=== PATIENT | female | born 1995 | race Caucasian/White ===

== ENCOUNTER 2017-01-18 08:56 | Emergency (ER) | payer OTHER ==
[~2017-01-18] VITALS: Ht 162.6 cm; Wt 86.7 kg
[2017-01-18 09:00] VITALS: Ht 162.6 cm; Wt 86.7 kg
[2017-01-18] MEDS ORDERED: KETOROLAC 60 MG INJ IM STA (09:49)
--- NOTE | 2017-01-18 09:49 | ERD ---
ER Documentation Chief Complaint Chief Complaint LT UPPER ABD PAIN WITH NAUSEA/VOMITING X 2 DAYS HPI 21y/o female patient with history of cholelithiasis, presents to the emergency department with mother c/o epigastric pain pain located on the right side, that started 2 days ago. pain is sharp and colicky, constant, rated 6/10, without radiation. The symptoms are associated with mild nausea and decreased appetite. Denies fever, chills, V/D, constipation or urinary symptoms. Positive history of previous episodes my last episode in 2015. Treatment attempted: None at this time. ROS SYSTEMIC symptoms: no fever, chills, no night sweats, no weight loss EYE symptoms: No blurred vision, no eye discharge OTOLARYNGEAL symptoms: No hearing loss. No ear pain, no sore throat CARDIOVASCULAR symptoms: No chest pain or discomfort, no palpitations. PULMONARY symptoms: No dyspnea, no cough, no wheezing. GASTROINTESTINAL symptoms: Burning abdominal pain, mild nausea, no vomiting, no diarrhea MUSCULOSKELETAL symptoms: No arthralgias, no muscle aches. NEUROLOGY symptoms: No confusion, no syncope, no numbness or tingling. SKIN no rashes All systems reviewed and are negative except as per history of present illness. Medications Home Meds Active Scripts Ibuprofen* (Ibuprofen*) 600 Mg Tablet, 600 MG PO Q6, #20 TAB Prov:LINO ROBLES MD 01/18/17 Ciprofloxacin Hcl* (Ciprofloxacin Hcl*) 250 Mg Tablet, 250 MG PO BID for 5 Days , #10 TAB Prov:LINO ROBLES MD 01/18/17 Allergies Allergies: Coded Allergies: No Known Allergy (Unverified , 01/18/17) Physical Exam Vitals Vital Signs Date Time Temp Pulse Resp B/P Pulse Ox O2 Delivery O2 Flow Rate FiO2 01/18/17 09:00 98.3 78 18 121/67 98 Physical Exam Patient is in mild distress due to pain, vital signs stable. Alert and fully oriented. EYES: PERRLA, EOMI, Sclera and conjunctiva appear normal. EARS: Canals clear, tympanic membranes WNL THROAT: Normal oropharynx. NECK: Supple, No lymphadenopathy. Full ROM without pain or tenderness. HEART: RRR, no rubs, murmurs, clicks or gallops. LUNGS: Clear to auscultation. ABDOMEN: Soft, non-tender without masses or hepatosplenomegaly. EXTREMITIES: No edema bilaterally. Back: Full ROM, no deformity, normal back exam Result Diagram: 01/18/17 1005 01/18/17 1005 Results 24 hrs Laboratory Tests Test 01/18/17 10:05 White Blood Count 8.110^3/ul Red Blood Count 4.4910^6/ul Hemoglobin 11.8g/dl Hematocrit 39.0% Mean Corpuscular Volume 86.9fl Mean Corpuscular Hemoglobin 26.3pg Mean Corpuscular Hemoglobin Concent 30.3g/dl Red Cell Distribution Width 14.7% Platelet Count 10637^3/UL Mean Platelet Volume 11.7fl Neutrophils % 59.0% Lymphocytes % 29.4% Monocytes % 9.0% Eosinophils % 1.9% Basophils % 0.2% Nucleated Red Blood Cells % 0.0/100WBC Neutrophils # 4.810^3/ul Lymphocytes # 2.410^3/ul Monocytes # 0.710^3/ul Eosinophils # 0.210^3/ul Basophils # 0.010^3/ul Nucleated Red Blood Cells # 0.010^3/ul Urine Color YELLOW Urine Clarity CLOUDY Urine pH 6.0 Urine Specific Roxana 1.020 Urine Ketones NEGATIVEmg/dL Urine Nitrite NEGATIVEmg/dL Urine Bilirubin NEGATIVEmg/dL Urine Urobilinogen NEGATIVEmg/dL Urine Leukocyte Esterase 2+Nell/ul Urine Microscopic RBC 4/HPF Urine Microscopic WBC 21/HPF Urine Squamous Epithelial Cells FEW/HPF Urine Amorphous Crystals FEW/HPF Urine Bacteria FEW/HPF Urine Mucus FEW/HPF Urine Hemoglobin 1+mg/dL Urine Glucose NEGATIVEmg/dL Urine Total Protein NEGATIVEmg/dl Urine Test NEGATIVE Sodium Level 144mmol/L Potassium Level 3.7mmol/L Chloride Level 105mmol/L Carbon Dioxide Level 27mmol/L Anion Gap 16 Blood Urea Nitrogen 12mg/dl Creatinine 0.71mg/dl Glucose Level 90mg/dl Calcium Level 8.7mg/dl Total Bilirubin 0.2mg/dl Direct Bilirubin 0.00mg/dl Indirect Bilirubin 0.2mg/dl Aspartate Amino Transf (AST/SGOT) 39IU/L Alanine Aminotransferase (ALT/SGPT) 76IU/L Alkaline Phosphatase 124IU/L Total Protein 6.3g/dl Albumin 3.8g/dl Globulin 2.50g/dl Albumin/Globulin Ratio 1.52 Lipase 116U/L Current Medications Medications (Trade) Dose Ordered Sig/Sahil Route PRN Reason Start Time Stop Time Status Last Admin Dose Admin Ketorolac Tromethamine (Toradol) 60 mg ONCE STAT IM 01/18/17 09:49 01/18/17 09:53 DC 01/18/17 11:02 DIAGNOSTIC IMAGING REPORT Patient: MACK INTERIANO : 1995 Age: 21 Sex: F MR #: [id number] DOS: 01/18/17 0949 Ordering MD: LINO ROBLES MD Location: [facility] Room/Bed: PROCEDURE: US Abdomen. CLINICAL INDICATION: abdominal pain TECHNIQUE: Multiple real-time images were acquired of the patient's right upper quadrant abdomen and retroperitoneum utilizing a high resolution transducer. COMPARISON: None FINDINGS: The study is limited due to the patient's body habitus and overlying bowel gas. The liver demonstrates slightly increased echogenicity. The liver is normal in size and no focal solid lesions are seen. The liver measures 15.5 cm in length. The portal vein is patent with normal direction of flow. No intrahepatic biliary dilatation is seen. Multiple calcified gallstones are identified within the gallbladder. There is no pericholecystic fluid. The gallbladder wall cannot be well seen. The common bile duct measures 4 mm in maximal dimension. The visualized portions of the pancreas are unremarkable. The tail of the pancreas is not seen. No free fluid is identified. The right kidney is normal in size, and demonstrate normal echogenicity and cortical thickness. The right kidney measures 9.3 cm in long dimension. There is no evidence of hydronephrosis. There are no kidney stones. RPTAT: AA IMPRESSION: Limited study due to the patient's body habitus and overlying bowel gas. Multiple calcified stones within the gallbladder. Gallbladder wall cannot be well seen but does not appear to be thickened. There is no pericholecystic fluid. Mild fatty infiltration of the liver. .Armando Torres MD, Date Time Electronically viewed and signed by .Armando Torres MD, on 01/18/2017 10: 39 Procedures/MDM 21y/o female patient history of cholelithiasis, presents to the ED c/o right upper quadrant pain for 2 days. Vital signs stable, Physical exam mild tenderness to deep palpation in epigastric area. Differential diagnosis include but not limited to: Gastritis, GERD, cholelithiasis, cholecystitis, less likely cholangitis, pancreatitis. Pertinent Data: Labs: CBC: normal, CMP: normal kidney and liver function with mildly elevated alkaline phosphatase and AST, normal electrolytes. Lipase: normal Upper quadrant ultrasound: Multiple calcified stones within the gallbladder. Gallbladder wall cannot be well seen but does not appear to be thickened. There is no pericholecystic fluid. UA: Consistent with urinary tract infection. test negative Physical examination and clinical presentation consistent most likely with UTI and biliary colic. During the ED course the patient received treatment with Toradol IM presenting overall improvement of the symptoms. Results and medical impression discussed with patient who agrees with management. The patient will be discharged home with a Rx for ciprofloxacin for UTI and ibuprofen for biliary colic Side effects of prescribed NSAID medication (GI distress, edema, bleeding, HTN) were reviewed. If symptoms persist, worsen or new symptoms develop, then patient is instructed to follow-up with the primary care provider. If the patient is unable to see the primary care provider, then return to the ED immediately. Departure Diagnosis: Primary Impression: Cholelithiases Additional Impression: Biliary colic Condition: Stable Additional Instructions: Muchas lashonda por [facility] para enriquez servicio. Esperamos que en enriquez visita a la gene de emergencia enriquez problema medico haya sido solucionado y que se sienta mucho mejor. Para estar seguros que enriquez mejoria sigue en proceso, le pedimos el favor de hacer nathen stephanie de seguimiento medico con enriquez doctor primario en los proximos 2-4 gauthier. Lleve con usted estos documentos y las medicinas recetadas. Si kristy sintomas empeoran y no puede charmaine a enriquez doctor, por favor regrese a gene de emergencia. En melissa que usted no tenga un mdico de atencin primaria: Llame al mdico o clnica comunitaria de referencia que aparece abajo sherry las horas de consultorio para hacer nathen stephanie para que le vean. CLINICAS: [facility] [phone] [facility] [phone] [facility] [phone] [place] [address] [phone] [place] [address] [phone] [facility] [phone] LINO HOLGUIN MD Jan 18, 2017 09:49
--- NOTE | 2017-01-18 09:49 | ERD ---
ER Documentation Chief Complaint Chief Complaint LT UPPER ABD PAIN WITH NAUSEA/VOMITING X 2 DAYS HPI 21y/o female patient with history of cholelithiasis, presents to the emergency department with mother c/o epigastric pain pain located on the right side, that started 2 days ago. pain is sharp and colicky, constant, rated 6/10, without radiation. The symptoms are associated with mild nausea and decreased appetite. Denies fever, chills, V/D, constipation or urinary symptoms. Positive history of previous episodes my last episode in 2015. Treatment attempted: None at this time. ROS SYSTEMIC symptoms: no fever, chills, no night sweats, no weight loss EYE symptoms: No blurred vision, no eye discharge OTOLARYNGEAL symptoms: No hearing loss. No ear pain, no sore throat CARDIOVASCULAR symptoms: No chest pain or discomfort, no palpitations. PULMONARY symptoms: No dyspnea, no cough, no wheezing. GASTROINTESTINAL symptoms: Burning abdominal pain, mild nausea, no vomiting, no diarrhea MUSCULOSKELETAL symptoms: No arthralgias, no muscle aches. NEUROLOGY symptoms: No confusion, no syncope, no numbness or tingling. SKIN no rashes All systems reviewed and are negative except as per history of present illness. Medications Home Meds Active Scripts Ibuprofen* (Ibuprofen*) 600 Mg Tablet, 600 MG PO Q6, #20 TAB Prov:LINO ROBLES MD 01/18/17 Ciprofloxacin Hcl* (Ciprofloxacin Hcl*) 250 Mg Tablet, 250 MG PO BID for 5 Days , #10 TAB Prov:LINO ROBLES MD 01/18/17 Allergies Allergies: Coded Allergies: No Known Allergy (Unverified , 01/18/17) Physical Exam Vitals Vital Signs Date Time Temp Pulse Resp B/P Pulse Ox O2 Delivery O2 Flow Rate FiO2 01/18/17 09:00 98.3 78 18 121/67 98 Physical Exam Patient is in mild distress due to pain, vital signs stable. Alert and fully oriented. EYES: PERRLA, EOMI, Sclera and conjunctiva appear normal. EARS: Canals clear, tympanic membranes WNL THROAT: Normal oropharynx. NECK: Supple, No lymphadenopathy. Full ROM without pain or tenderness. HEART: RRR, no rubs, murmurs, clicks or gallops. LUNGS: Clear to auscultation. ABDOMEN: Soft, non-tender without masses or hepatosplenomegaly. EXTREMITIES: No edema bilaterally. Back: Full ROM, no deformity, normal back exam Result Diagram: 01/18/17 1005 01/18/17 1005 Results 24 hrs Laboratory Tests Test 01/18/17 10:05 White Blood Count 8.110^3/ul Red Blood Count 4.4910^6/ul Hemoglobin 11.8g/dl Hematocrit 39.0% Mean Corpuscular Volume 86.9fl Mean Corpuscular Hemoglobin 26.3pg Mean Corpuscular Hemoglobin Concent 30.3g/dl Red Cell Distribution Width 14.7% Platelet Count 73491^3/UL Mean Platelet Volume 11.7fl Neutrophils % 59.0% Lymphocytes % 29.4% Monocytes % 9.0% Eosinophils % 1.9% Basophils % 0.2% Nucleated Red Blood Cells % 0.0/100WBC Neutrophils # 4.810^3/ul Lymphocytes # 2.410^3/ul Monocytes # 0.710^3/ul Eosinophils # 0.210^3/ul Basophils # 0.010^3/ul Nucleated Red Blood Cells # 0.010^3/ul Urine Color YELLOW Urine Clarity CLOUDY Urine pH 6.0 Urine Specific Vance 1.020 Urine Ketones NEGATIVEmg/dL Urine Nitrite NEGATIVEmg/dL Urine Bilirubin NEGATIVEmg/dL Urine Urobilinogen NEGATIVEmg/dL Urine Leukocyte Esterase 2+Nell/ul Urine Microscopic RBC 4/HPF Urine Microscopic WBC 21/HPF Urine Squamous Epithelial Cells FEW/HPF Urine Amorphous Crystals FEW/HPF Urine Bacteria FEW/HPF Urine Mucus FEW/HPF Urine Hemoglobin 1+mg/dL Urine Glucose NEGATIVEmg/dL Urine Total Protein NEGATIVEmg/dl Urine Test NEGATIVE Sodium Level 144mmol/L Potassium Level 3.7mmol/L Chloride Level 105mmol/L Carbon Dioxide Level 27mmol/L Anion Gap 16 Blood Urea Nitrogen 12mg/dl Creatinine 0.71mg/dl Glucose Level 90mg/dl Calcium Level 8.7mg/dl Total Bilirubin 0.2mg/dl Direct Bilirubin 0.00mg/dl Indirect Bilirubin 0.2mg/dl Aspartate Amino Transf (AST/SGOT) 39IU/L Alanine Aminotransferase (ALT/SGPT) 76IU/L Alkaline Phosphatase 124IU/L Total Protein 6.3g/dl Albumin 3.8g/dl Globulin 2.50g/dl Albumin/Globulin Ratio 1.52 Lipase 116U/L Current Medications Medications (Trade) Dose Ordered Sig/Sahil Route PRN Reason Start Time Stop Time Status Last Admin Dose Admin Ketorolac Tromethamine (Toradol) 60 mg ONCE STAT IM 01/18/17 09:49 01/18/17 09:53 DC 01/18/17 11:02 DIAGNOSTIC IMAGING REPORT Patient: MACK INTERIANO : 1995 Age: 21 Sex: F MR #: [id number] DOS: 01/18/17 0949 Ordering MD: LINO ROBLES MD Location: [facility]TE Room/Bed: PROCEDURE: US Abdomen. CLINICAL INDICATION: abdominal pain TECHNIQUE: Multiple real-time images were acquired of the patient's right upper quadrant abdomen and retroperitoneum utilizing a high resolution transducer. COMPARISON: None FINDINGS: The study is limited due to the patient's body habitus and overlying bowel gas. The liver demonstrates slightly increased echogenicity. The liver is normal in size and no focal solid lesions are seen. The liver measures 15.5 cm in length. The portal vein is patent with normal direction of flow. No intrahepatic biliary dilatation is seen. Multiple calcified gallstones are identified within the gallbladder. There is no pericholecystic fluid. The gallbladder wall cannot be well seen. The common bile duct measures 4 mm in maximal dimension. The visualized portions of the pancreas are unremarkable. The tail of the pancreas is not seen. No free fluid is identified. The right kidney is normal in size, and demonstrate normal echogenicity and cortical thickness. The right kidney measures 9.3 cm in long dimension. There is no evidence of hydronephrosis. There are no kidney stones. RPTAT: AA IMPRESSION: Limited study due to the patient's body habitus and overlying bowel gas. Multiple calcified stones within the gallbladder. Gallbladder wall cannot be well seen but does not appear to be thickened. There is no pericholecystic fluid. Mild fatty infiltration of the liver. .Armando Torres MD, Date Time Electronically viewed and signed by .Armando Torres MD, on 01/18/2017 10: 39 Procedures/MDM 21y/o female patient history of cholelithiasis, presents to the ED c/o right upper quadrant pain for 2 days. Vital signs stable, Physical exam mild tenderness to deep palpation in epigastric area. Differential diagnosis include but not limited to: Gastritis, GERD, cholelithiasis, cholecystitis, less likely cholangitis, pancreatitis. Pertinent Data: Labs: CBC: normal, CMP: normal kidney and liver function with mildly elevated alkaline phosphatase and AST, normal electrolytes. Lipase: normal Upper quadrant ultrasound: Multiple calcified stones within the gallbladder. Gallbladder wall cannot be well seen but does not appear to be thickened. There is no pericholecystic fluid. UA: Consistent with urinary tract infection. test negative Physical examination and clinical presentation consistent most likely with UTI and biliary colic. During the ED course the patient received treatment with Toradol IM presenting overall improvement of the symptoms. Results and medical impression discussed with patient who agrees with management. The patient will be discharged home with a Rx for ciprofloxacin for UTI and ibuprofen for biliary colic Side effects of prescribed NSAID medication (GI distress, edema, bleeding, HTN) were reviewed. If symptoms persist, worsen or new symptoms develop, then patient is instructed to follow-up with the primary care provider. If the patient is unable to see the primary care provider, then return to the ED immediately. Departure Diagnosis: Primary Impression: Cholelithiases Additional Impression: Biliary colic Condition: Stable Additional Instructions: Muchas lashonda por [facility] para enriquez servicio. Esperamos que en enriquez visita a la gene de emergencia enriquez problema medico haya sido solucionado y que se sienta mucho mejor. Para estar seguros que enriquez mejoria sigue en proceso, le pedimos el favor de hacer nathen stephanie de seguimiento medico con enriquez doctor primario en los proximos 2-4 gauthier. Lleve con usted estos documentos y las medicinas recetadas. Si kristy sintomas empeoran y no puede charmaine a enriquez doctor, por favor regrese a gene de emergencia. En melissa que usted no tenga un mdico de atencin primaria: Llame al mdico o clnica comunitaria de referencia que aparece abajo sherry las horas de consultorio para hacer nathen stephanie para que le vean. CLINICAS: [facility] [phone] [facility] [phone] [facility] [phone] [address] [place] [address] [phone] [place] [address] [phone] [facility] [phone] LINO HOLGUIN MD Jan 18, 2017 09:49
--- NOTE | 2017-01-18 09:49 | ERD ---
ER Documentation Chief Complaint Chief Complaint LT UPPER ABD PAIN WITH NAUSEA/VOMITING X 2 DAYS HPI 21y/o female patient with history of cholelithiasis, presents to the emergency department with mother c/o epigastric pain pain located on the right side, that started 2 days ago. pain is sharp and colicky, constant, rated 6/10, without radiation. The symptoms are associated with mild nausea and decreased appetite. Denies fever, chills, V/D, constipation or urinary symptoms. Positive history of previous episodes my last episode in 2015. Treatment attempted: None at this time. ROS SYSTEMIC symptoms: no fever, chills, no night sweats, no weight loss EYE symptoms: No blurred vision, no eye discharge OTOLARYNGEAL symptoms: No hearing loss. No ear pain, no sore throat CARDIOVASCULAR symptoms: No chest pain or discomfort, no palpitations. PULMONARY symptoms: No dyspnea, no cough, no wheezing. GASTROINTESTINAL symptoms: Burning abdominal pain, mild nausea, no vomiting, no diarrhea MUSCULOSKELETAL symptoms: No arthralgias, no muscle aches. NEUROLOGY symptoms: No confusion, no syncope, no numbness or tingling. SKIN no rashes All systems reviewed and are negative except as per history of present illness. Medications Home Meds Active Scripts Ibuprofen* (Ibuprofen*) 600 Mg Tablet, 600 MG PO Q6, #20 TAB Prov:LINO ROBLES MD 01/18/17 Ciprofloxacin Hcl* (Ciprofloxacin Hcl*) 250 Mg Tablet, 250 MG PO BID for 5 Days , #10 TAB Prov:LINO ROBLES MD 01/18/17 Allergies Allergies: Coded Allergies: No Known Allergy (Unverified , 01/18/17) Physical Exam Vitals Vital Signs Date Time Temp Pulse Resp B/P Pulse Ox O2 Delivery O2 Flow Rate FiO2 01/18/17 09:00 98.3 78 18 121/67 98 Physical Exam Patient is in mild distress due to pain, vital signs stable. Alert and fully oriented. EYES: PERRLA, EOMI, Sclera and conjunctiva appear normal. EARS: Canals clear, tympanic membranes WNL THROAT: Normal oropharynx. NECK: Supple, No lymphadenopathy. Full ROM without pain or tenderness. HEART: RRR, no rubs, murmurs, clicks or gallops. LUNGS: Clear to auscultation. ABDOMEN: Soft, non-tender without masses or hepatosplenomegaly. EXTREMITIES: No edema bilaterally. Back: Full ROM, no deformity, normal back exam Result Diagram: 01/18/17 1005 01/18/17 1005 Results 24 hrs Laboratory Tests Test 01/18/17 10:05 White Blood Count 8.110^3/ul Red Blood Count 4.4910^6/ul Hemoglobin 11.8g/dl Hematocrit 39.0% Mean Corpuscular Volume 86.9fl Mean Corpuscular Hemoglobin 26.3pg Mean Corpuscular Hemoglobin Concent 30.3g/dl Red Cell Distribution Width 14.7% Platelet Count 03273^3/UL Mean Platelet Volume 11.7fl Neutrophils % 59.0% Lymphocytes % 29.4% Monocytes % 9.0% Eosinophils % 1.9% Basophils % 0.2% Nucleated Red Blood Cells % 0.0/100WBC Neutrophils # 4.810^3/ul Lymphocytes # 2.410^3/ul Monocytes # 0.710^3/ul Eosinophils # 0.210^3/ul Basophils # 0.010^3/ul Nucleated Red Blood Cells # 0.010^3/ul Urine Color YELLOW Urine Clarity CLOUDY Urine pH 6.0 Urine Specific [place] 1.020 Urine Ketones NEGATIVEmg/dL Urine Nitrite NEGATIVEmg/dL Urine Bilirubin NEGATIVEmg/dL Urine Urobilinogen NEGATIVEmg/dL Urine Leukocyte Esterase 2+Nell/ul Urine Microscopic RBC 4/HPF Urine Microscopic WBC 21/HPF Urine Squamous Epithelial Cells FEW/HPF Urine Amorphous Crystals FEW/HPF Urine Bacteria FEW/HPF Urine Mucus FEW/HPF Urine Hemoglobin 1+mg/dL Urine Glucose NEGATIVEmg/dL Urine Total Protein NEGATIVEmg/dl Urine Test NEGATIVE Sodium Level 144mmol/L Potassium Level 3.7mmol/L Chloride Level 105mmol/L Carbon Dioxide Level 27mmol/L Anion Gap 16 Blood Urea Nitrogen 12mg/dl Creatinine 0.71mg/dl Glucose Level 90mg/dl Calcium Level 8.7mg/dl Total Bilirubin 0.2mg/dl Direct Bilirubin 0.00mg/dl Indirect Bilirubin 0.2mg/dl Aspartate Amino Transf (AST/SGOT) 39IU/L Alanine Aminotransferase (ALT/SGPT) 76IU/L Alkaline Phosphatase 124IU/L Total Protein 6.3g/dl Albumin 3.8g/dl Globulin 2.50g/dl Albumin/Globulin Ratio 1.52 Lipase 116U/L Current Medications Medications (Trade) Dose Ordered Sig/Sahil Route PRN Reason Start Time Stop Time Status Last Admin Dose Admin Ketorolac Tromethamine (Toradol) 60 mg ONCE STAT IM 01/18/17 09:49 01/18/17 09:53 DC 01/18/17 11:02 DIAGNOSTIC IMAGING REPORT Patient: MACK INTERIANO : 1995 Age: 21 Sex: F MR #: [id number] DOS: 01/18/17 0949 Ordering MD: LINO ROBLES MD Location: [facility] Room/Bed: PROCEDURE: US Abdomen. CLINICAL INDICATION: abdominal pain TECHNIQUE: Multiple real-time images were acquired of the patient's right upper quadrant abdomen and retroperitoneum utilizing a high resolution transducer. COMPARISON: None FINDINGS: The study is limited due to the patient's body habitus and overlying bowel gas. The liver demonstrates slightly increased echogenicity. The liver is normal in size and no focal solid lesions are seen. The liver measures 15.5 cm in length. The portal vein is patent with normal direction of flow. No intrahepatic biliary dilatation is seen. Multiple calcified gallstones are identified within the gallbladder. There is no pericholecystic fluid. The gallbladder wall cannot be well seen. The common bile duct measures 4 mm in maximal dimension. The visualized portions of the pancreas are unremarkable. The tail of the pancreas is not seen. No free fluid is identified. The right kidney is normal in size, and demonstrate normal echogenicity and cortical thickness. The right kidney measures 9.3 cm in long dimension. There is no evidence of hydronephrosis. There are no kidney stones. RPTAT: AA IMPRESSION: Limited study due to the patient's body habitus and overlying bowel gas. Multiple calcified stones within the gallbladder. Gallbladder wall cannot be well seen but does not appear to be thickened. There is no pericholecystic fluid. Mild fatty infiltration of the liver. .Armando Torres MD, Date Time Electronically viewed and signed by .Armando Torres MD, on 01/18/2017 10: 39 Procedures/MDM 21y/o female patient history of cholelithiasis, presents to the ED c/o right upper quadrant pain for 2 days. Vital signs stable, Physical exam mild tenderness to deep palpation in epigastric area. Differential diagnosis include but not limited to: Gastritis, GERD, cholelithiasis, cholecystitis, less likely cholangitis, pancreatitis. Pertinent Data: Labs: CBC: normal, CMP: normal kidney and liver function with mildly elevated alkaline phosphatase and AST, normal electrolytes. Lipase: normal Upper quadrant ultrasound: Multiple calcified stones within the gallbladder. Gallbladder wall cannot be well seen but does not appear to be thickened. There is no pericholecystic fluid. UA: Consistent with urinary tract infection. test negative Physical examination and clinical presentation consistent most likely with UTI and biliary colic. During the ED course the patient received treatment with Toradol IM presenting overall improvement of the symptoms. Results and medical impression discussed with patient who agrees with management. The patient will be discharged home with a Rx for ciprofloxacin for UTI and ibuprofen for biliary colic Side effects of prescribed NSAID medication (GI distress, edema, bleeding, HTN) were reviewed. If symptoms persist, worsen or new symptoms develop, then patient is instructed to follow-up with the primary care provider. If the patient is unable to see the primary care provider, then return to the ED immediately. Departure Diagnosis: Primary Impression: Cholelithiases Additional Impression: Biliary colic Condition: Stable Additional Instructions: Muchas lashonda por [facility] para enriquez servicio. Esperamos que en enriquez visita a la gene de emergencia enriquez problema medico haya sido solucionado y que se sienta mucho mejor. Para estar seguros que enriquez mejoria sigue en proceso, le pedimos el favor de hacer nathen stephanie de seguimiento medico con enriquez doctor primario en los proximos 2-4 gauthier. Lleve con usted estos documentos y las medicinas recetadas. Si kristy sintomas empeoran y no puede charmaine a enriquez doctor, por favor regrese a gene de emergencia. En melissa que usted no tenga un mdico de atencin primaria: Llame al mdico o clnica comunitaria de referencia que aparece abajo sheryr las horas de consultorio para hacer nathen stephanie para que le vean. CLINICAS: [facility] [phone] [facility] [phone] [facility] [phone] [place] [phone] [place] [phone] [facility] [phone] LINO HOLGUIN MD Jan 18, 2017 09:49
--- NOTE | 2017-01-18 10:39 | RADRPT ---
PROCEDURE: US Abdomen. CLINICAL INDICATION: abdominal pain TECHNIQUE: Multiple real-time images were acquired of the patient's right upper quadrant abdomen a nd retroperitoneum utilizing a high resolution transducer. COMPARISON: None FINDINGS: The study is limited due to the patient's body habitus and overlying bowel gas. The liver demonstrates slightly increased echogenicity. The liver is normal in size and no focal so lid lesions are seen. The liver measures 15.5 cm in length. The portal vein is patent with normal di rection of flow. No intrahepatic biliary dilatation is seen. Multiple calcified gallstones are identified within the gallbladder. There is no pericholecystic fl uid. The gallbladder wall cannot be well seen. The common bile duct measures 4 mm in maximal dimensi on. The visualized portions of the pancreas are unremarkable. The tail of the pancreas is not seen. No free fluid is identified. The right kidney is normal in size, and demonstrate normal echogenicity and cortical thickness. The right kidney measures 9.3 cm in long dimension. There is no evidence of hydronephrosis. There are no kidney stones. RPTAT: AA IMPRESSION: Limited study due to the patient's body habitus and overlying bowel gas. Multiple calcified stones within the gallbladder. Gallbladder wall cannot be well seen but does not appear to be thickened. There is no pericholecystic fluid. Mild fatty infiltration of the liver. .Armando Torres MD, MD Date Time Electronically viewed and signed by .Armando Torres MD, MD on 01/18/2017 10:39 .S/
[2017-01-18] MEDS ORDERED: IBUP-1542 PO (12:15)
[2017-01-18] MEDS ORDERED: CIPR-193 PO (12:15)
[2017-01-18 12:38] VITALS: TEMP 98.2
== END 2017-01-18 12:39 | disposition home or self-care (01) ==
LOC: FTE 08:56
DX: K80.20 Calculus of gallbladder without cholecystitis without obstruction (principal)
CPT/HCPCS: 36415; 76705; 80053; 81001; 83690; 84703; 85025; 96372; J1885; Z7502

== ENCOUNTER 2018-05-18 23:02 | Emergency (ER) | payer OTHER ==
[~2018-05-18] VITALS: Ht 152.4 cm; Wt 84.1 kg
[~2018-05-18 23:02] MED LIST: CIPR-193 PO; IBUP-1542 PO
[2018-05-18 23:07] VITALS: Ht 152.4 cm; Wt 84.1 kg
[2018-05-19] MEDS ORDERED: FAMOTIDINE 20 MG TAB PO STA (01:25)
[2018-05-19] MEDS ORDERED: ACETAMINOPHEN 325 MG TAB PO ONE (01:30)
[2018-05-19] MEDS ORDERED: FAMO-96 PO (02:50)
[2018-05-19] MEDS ORDERED: ONDA8TAB14 PO (02:50)
[2018-05-19] MEDS ORDERED: ACET1TAB40 PO (02:50)
--- NOTE | 2018-05-19 02:54 | ERD ---
ER Documentation Chief Complaint Chief Complaint Pt reports upper abd pain HPI 22-year-old female presents with upper abdominal pain for last week. It is intermittent. She points to the epigastric and bilateral upper abdominal area. She has nausea without vomiting. She is uncertain of the pain is postprandial. Pain is described as 9-10 intermittent. She denies lower abdominal pain, urinary complaints. Patient has a known history of gallstones but has not sought treatment. Patient denies . ROS All systems reviewed and are negative except as per history of present illness. Medications Home Meds Active Scripts Famotidine* (Pepcid*) 20 Mg Tablet, 20 MG PO BID for 7 Days, #14 TAB Prov:ISIDRA DUMONT MD 05/19/18 Ondansetron (Ondansetron Odt) 8 Mg Tab.rapdis, 8 MG PO Q6H PRN for NAUSEA AND/OR VOMITING, #8 TAB Prov:ISIDRA DUMONT MD 05/19/18 Acetaminophen with Codeine (Acetaminophen-Cod #3 Tablet) 1 Each Tablet, 1 TAB PO Q6H PRN for PAIN, #10 TAB Prov:ISIDRA DUMONT MD 05/19/18 Ibuprofen* (Ibuprofen*) 600 Mg Tablet, 600 MG PO Q6, #20 TAB Prov:LINO ROBLES MD 01/18/17 Ciprofloxacin Hcl* (Ciprofloxacin Hcl*) 250 Mg Tablet, 250 MG PO BID for 5 Days, #10 TAB Prov:LINO ROBLES MD 01/18/17 Allergies Allergies: Coded Allergies: No Known Allergy (Unverified , 01/18/17) PMhx/Soc Medical and Surgical Hx: pt denies Surgical Hx Hx Cardiac Disorders: Yes (high cholesterol) Hx Alcohol Use: No Hx Substance Use: No Hx Tobacco Use: No FmHx Family History: No diabetes, No coronary disease, No other Physical Exam Vitals Vital Signs Date Temp Pulse Resp B/P (MAP) Pulse Ox O2 O2 Flow FiO2 Time Delivery Rate 05/18/18 97.9 79 20 112/61 100 23:07 (78) Physical Exam Const: No acute distress Head: Atraumatic Eyes: Normal Conjunctiva ENT: Normal External Ears, Nose and Mouth. Neck: Full range of motion. No meningismus. Resp: Clear to auscultation bilaterally Cardio: Regular rate and rhythm, no murmurs Abd: Soft, mild upper abdominal tenderness mostly in the epigastric area possibly in the right upper quadrant and mildly in the left upper quadrant. No tenderness at McBurney's point no lower abdominal tenderness or rebound. Non distended. Normal bowel sounds Skin: No petechiae or rashes Back: No midline or flank tenderness Ext: No cyanosis, or edema Neur: Awake and alert Psych: Normal Mood and Affect Result Diagram: 05/19/18 0145 05/19/18 0145 Results 24 hrs Laboratory Tests Test 05/19/18 01:39 05/19/18 01:45 05/19/18 01:49 Urine Color YELLOW Urine Clarity SLIGHTLY CLOUDY Urine pH 6.[address] 1.020 Urine Ketones NEGATIVE mg/dL Urine Nitrite NEGATIVE mg/dL Urine Bilirubin NEGATIVE mg/dL Urine Urobilinogen NEGATIVE mg/dL Urine Leukocyte Esterase 1+ Nell/ul Urine Microscopic RBC 28 /HPF Urine Microscopic WBC 6 /HPF Urine Squamous Epithelial Cells FEW /HPF Urine Mucus FEW /HPF Urine Hemoglobin 3+ mg/dL Urine Glucose NEGATIVE mg/dL Urine Total Protein NEGATIVE mg/dl White Blood Count 7.0 10^3/ul Red Blood Count 4.55 10^6/ul Hemoglobin 11.1 g/dl Hematocrit 36.9 % Mean Corpuscular Volume 81.1 fl Mean Corpuscular Hemoglobin 24.4 pg Mean Corpuscular 30.1 g/dl Hemoglobin Concent Red Cell Distribution Width 15.9 % Platelet Count 208 10^3/UL Mean Platelet Volume 11.7 fl Immature Granulocytes % 0.400 % Neutrophils % 61.9 % Lymphocytes % 28.8 % Monocytes % 7.5 % Eosinophils % 1.1 % Basophils % 0.3 % Nucleated Red Blood Cells % 0.0 /100WBC Immature Granulocytes # 0.030 10^3/ul Neutrophils # 4.3 10^3/ul Lymphocytes # 2.0 10^3/ul Monocytes # 0.5 10^3/ul Eosinophils # 0.1 10^3/ul Basophils # 0.0 10^3/ul Nucleated Red Blood Cells # 0.0 10^3/ul Sodium Level 145 mmol/L Potassium Level 4.3 mmol/L Chloride Level 107 mmol/L Carbon Dioxide Level 31 mmol/L Anion Gap 7 Blood Urea Nitrogen 21 mg/dl Creatinine 0.84 mg/dl Est Glomerular Filtrat > 60 mL/min Rate mL/min Glucose Level 91 mg/dl Calcium Level 9.1 mg/dl Total Bilirubin 0.0 mg/dl Direct Bilirubin 0.00 mg/dl Indirect Bilirubin 0.0 mg/dl Aspartate Amino Transf (AST/SGOT) 32 IU/L Alanine 44 IU/L Aminotransferase (ALT/SGPT) Alkaline Phosphatase 130 IU/L Total Protein 6.3 g/dl Albumin 3.7 g/dl Globulin 2.60 g/dl Albumin/Globulin Ratio 1.42 Lipase 175 U/L POC Beta HCG, Qualitative NEGATIVE Current Medications Medications Dose Sig/Sahil Start Time Status Last (Trade) Ordered Route PRN Stop Time Admin Dose Reason Admin Famotidine 20 mg ONCE STAT 05/19/18 DC 05/19/18 (Pepcid) PO 01:25 05/19/18 01:57 01:29 650 mg ONCE ONCE 05/19/18 DC 05/19/18 Acetaminophen PO 01:30 05/19/18 01:57 (Tylenol 01:31 Tab) Procedures/MDM CBC shows no leukocytosis. CMP shows no significant acute abnormalities. Urine shows trace leukocyte esterase and few white blood cells. HCG negative. Lipase normal. Right upper quadrant ultrasound shows gallstones without evidence of cholecystitis or choledocholithiasis. Patient given Tylenol and Zofran and Pepcid. Patient presents with upper abdominal pain of uncertain etiology for last week. She may have biliary colic. She has no signs of appendicitis, cholecystitis, choledocholithiasis, pancreatitis, surgical abdomen. She will be discharged home with a short course of Tylenol 3, Zofran, Pepcid, recommendations for general surgery evaluation for gallbladder removal. Should return sooner for fevers, vomiting, lower abdominal pain, new worsening symptoms with primary doctor for likely referral. The magaly ent was stable with no new complaints during the ER course. Clinically, there is no current evidence to suggest meningitis, sepsis, acute abdomen, pneumonia, stroke, acute coronary syndrome, pulmonary embolism, aortic dissection or any other emergent condition appearing to require further evaluation or hospitalization. Patient counseled regarding my diagnostic impression and care plan. Prior to discharge all questions answered. Pt agrees with treatment plan and understands strict return precautions. Pt is instructed to follow up with primary care provider within 24-48 hours. Precautionary instructions provided including instructions to return to the ER if not improving or for any worsening or changing symptoms or concerns. Disclaimer: Inadvertent spelling and grammatical errors are likely due to EHR/dictation software use and do not reflect on the overall quality of patient care. Also, please note that the electronic time recorded on this note does not necessarily reflect the actual time of the patient encounter. Departure Diagnosis: Primary Impression: Abdominal pain Abdominal location: upper abdomen, unspecified Qualified Codes: R10.10 - Upper abdominal pain, unspecified Condition: Stable Patient Instructions: Gallstones Referrals: Blayne MCARTHUR SAMUEL MD LOMIS, THOMAS MD Additional Instructions: Pain likely from gallstones. Recheck for fevers, vomiting, lower abdominal pain, new or worsening symptoms. Recommend general surgery evaluation for gallbladder removal. Likely need authorization from primary doctor for general surgery evaluation. ISIDRA DUMONT MD May 19, 2018 02:54
[2018-05-19 03:11] VITALS: BP 92/55; PULSE 60; RESP 20
== END 2018-05-19 03:45 | disposition home or self-care (01) ==
LOC: FTE 23:02
DX: R10.11 Right upper quadrant pain (principal); R11.0 Nausea
CPT/HCPCS: 36415; 76705; 80053; 81001; 81025; 83690; 85025; Z7502; Z7610

== ENCOUNTER → 2018-11-01 | Emergency (ER) | payer OTHER ==
[~2018-11-01] VITALS: Ht 154.9 cm; Wt 90.0 kg
[~2018-11-01] MED LIST changes: +ACET1TAB40 PO; +ACET500C5 PO; +FAMO-96 PO; +LIDOCAINE/MYLANTA 40 ML BTL PO ONE; +ONDA4TAB14 PO; +ONDA8TAB14 PO; +ONDANSETRON (ODT) 4 MG TAB ODT STA
[2018-11-01 02:31] VITALS: BP 97/56; PULSE 82; RESP 19; Ht 154.9 cm; Wt 90.0 kg
--- NOTE | 2018-11-01 04:36 | ERD ---
ER Documentation Chief Complaint Chief Complaint C/O RUQ AP W/ NAUSEA SINCE YESTERDAY, HX OF GASTRITIS HPI 23-year-old female presenting to the ED for right upper quadrant pain that presented after she ate a heavy meal yesterday. Patient states this is happened in the past and she is been told that she has gallstones. Patient last menstrual cycle was Sunday. Patient denies any allergies to medications states she does not currently take any medications. Patient states the pain is a 10 out of 10 and she feels nauseous. Patient denies fever chills night sweats shortness of breath or cough. ROS All systems reviewed and are negative except as per history of present illness. Medications Home Meds Active Scripts Ondansetron (Ondansetron Odt) 4 Mg Tab.rapdis, 4 MG PO Q6H PRN for NAUSEA AND/OR VOMITING for 7 Days, TAB Prov:REMI CHAND PA-C 11/01/18 Acetaminophen* (Tylophen*) 500 Mg Capsule, 1 CAP PO Q6H PRN for PAIN AND OR ELEVATED TEMP, #20 CAP Prov:REMI CHAND PA-C 11/01/18 Famotidine* (Pepcid*) 20 Mg Tablet, 20 MG PO BID for 7 Days, #14 TAB Prov:ISIDRA DUMONT MD 05/19/18 Ondansetron (Ondansetron Odt) 8 Mg Tab.rapdis, 8 MG PO Q6H PRN for NAUSEA AND/OR VOMITING, #8 TAB Prov:ISIDRA DUMONT MD 05/19/18 Acetaminophen with Codeine (Acetaminophen-Cod #3 Tablet) 1 Each Tablet, 1 TAB PO Q6H PRN for PAIN, #10 TAB Prov:ISIDRA DUMONT MD 05/19/18 Ibuprofen* (Ibuprofen*) 600 Mg Tablet, 600 MG PO Q6, #20 TAB Prov:LINO ROBLES MD 01/18/17 Ciprofloxacin Hcl* (Ciprofloxacin Hcl*) 250 Mg Tablet, 250 MG PO BID for 5 Days, #10 TAB Prov:LINO ROBLES MD 01/18/17 Allergies Allergies: Coded Allergies: No Known Allergy (Unverified , 01/18/17) PMhx/Soc Medical and Surgical Hx: pt denies Medical Hx, pt denies Surgical Hx History of Surgery: No Anesthesia Reaction: No Hx Neurological Disorder: No Hx Respiratory Disorders: No Hx Cardiac Disorders: No Hx Psychiatric Problems: No Hx Miscellaneous Medical Probl: No Hx Alcohol Use: No Hx Substance Use: No Hx Tobacco Use: No Smoking Status: Never smoker FmHx Family History: No diabetes, No coronary disease, No other Physical Exam Vitals Vital Signs Date Temp Pulse Resp B/P (MAP) Pulse Ox O2 O2 Flow FiO2 Time Delivery Rate 11/01/18 97.7 82 19 97/56 (70) 98 02:31 Physical Exam GENERAL: Moderate distress CHEST: Clear to auscultation bilaterally. There are no rales, wheezes or rhonchi. HEART: Regular rate and rhythm. No murmurs, clicks, rubs or gallops. ABDOMEN: Pain to palpation in the right upper quadrant BACK: No midline or flank tenderness. Result Diagram: 11/01/18 0300 11/01/18 0300 Results 24 hrs Laboratory Tests Test 11/01/18 02:40 11/01/18 02:50 11/01/18 03:00 11/01/18 03:03 Urine Color RED Urine Clarity CLOUDY Urine pH 6.0 Urine Specific 1.025 [place] Urine Ketones NEGATIVE mg/dL Urine Nitrite NEGATIVE mg/dL Urine Bilirubin NEGATIVE mg/dL Urine NEGATIVE mg/dL Urobilinogen Urine Leukocyte NEGATIVE Nell/ul Esterase Urine Microscopic > 182 /HPF RBC Urine Microscopic 13 /HPF WBC Urine Squamous FEW /HPF Epithelial Cells Urine Bacteria FEW /HPF Urine Hemoglobin 3+ mg/dL Urine Glucose NEGATIVE mg/dL Urine Total 1+ mg/dl Protein POC Beta HCG, NEGATIVE NEGATIVE Qualitative White Blood Count 7.9 10^3/ul Red Blood Count 4.89 10^6/ul Hemoglobin 11.9 g/dl Hematocrit 39.8 % Mean Corpuscular 81.4 fl Volume Mean Corpuscular 24.3 pg Hemoglobin Mean Corpuscular 29.9 g/dl Hemoglobin Concen t Red Cell 17.2 % Distribution Width Platelet Count 223 10^3/UL Mean Platelet 11.3 fl Volume Immature 0.300 % Granulocytes % Neutrophils % 59.6 % Lymphocytes % 31.1 % Monocytes % 7.8 % Eosinophils % 1.1 % Basophils % 0.1 % Nucleated Red 0.0 /100WBC Blood Cells % Immature 0.020 10^3/ul Granulocytes # Neutrophils # 4.7 10^3/ul Lymphocytes # 2.5 10^3/ul Monocytes # 0.6 10^3/ul Eosinophils # 0.1 10^3/ul Basophils # 0.0 10^3/ul Nucleated Red 0.0 10^3/ul Blood Cells # Sodium Level 143 mmol/L Potassium Level 3.9 mmol/L Chloride Level 109 mmol/L Carbon Dioxide 26 mmol/L Level Anion Gap 8 Blood Urea 18 mg/dl Nitrogen Creatinine 0.73 mg/dl Est Glomerular > 60 mL/min Filtrat Rate mL/min Glucose Level 97 mg/dl Calcium Level 9.2 mg/dl Total Bilirubin 0.3 mg/dl Direct Bilirubin 0.00 mg/dl Indirect 0.3 mg/dl Bilirubin Aspartate Amino 37 IU/L Transf (AST/SGOT) Alanine 93 IU/L Aminotransferase (ALT/SGPT) Alkaline 113 IU/L Phosphatase Total Protein 6.8 g/dl Albumin 3.8 g/dl Globulin 3.00 g/dl Albumin/Globulin 1.26 Ratio Lipase 118 U/L Current Medications Medications Dose Sig/Sahil Start Time Status Last (Trade) Ordered Route PRN Stop Time Admin Dose Reason Admin Ondansetron 4 mg ONCE STAT 11/01/18 DC 11/01/18 HCl (Zofran ODT 02:48 03:01 Odt) 11/01/18 02:52 40 ml ONCE ONCE 11/01/18 DC 11/01/18 Miscellaneous PO 03:00 03:01 Medication 11/01/18 03:01 (Gi Cocktail (2)) Procedures/MDM ED course: The patient was stable throughout the ED course. The patient and/or family informed of laboratory and diagnostic imaging results throughout the ED course. Diagnostic imaging: Read by radiologist .Nitish Arriaza, PROCEDURE: ULTRASOUND LIMITED ABDOMEN CLINICAL INDICATION: 23-year-old female with abdominal pain. TECHNIQUE: Multiple sonographic of the right upper quadrant of the abdomen were obtained. The images were reviewed on a PACS workstation. COMPARISON: Right upper quadrant ultrasound May 19, 2018. FINDINGS: The pancreas is not well visualized secondary to overlying bowel gas. The liver displays normal echogenicity. The liver measures 16.2 cm in length. No evidence of intrahepatic biliary ductal dilatation is seen. The portal and hepatic veins are unremarkable. The gallbladder a prominent shadowing stone. The gallbladder wall thickness is within normal limits measuring 1.7 mm. No pericholecystic fluid is seen. The common bile duct measures 3.4 mm and is not dilated. The right kidney displays normal echogenicity. The right kidney measures 9.4 cm. No caliectasis or hydronephrosis is seen. No free fluid is seen. IMPRESSION: Cholelithiasis. Medications given in ER: Zofran GI cocktail Patient tolerated medication well with no adverse reactions. Patient reported improvement in pain. Medical decision makin-year-old female presented to ED for right upper quadrant pain x2 days. Patient has a history of gallstones. Patient states the pain came on after she ate a heavy meal yesterday. Patient is presenting with vitals stable. Patient was given Zofran and GI cocktail in the ED. Patient's ultrasound revealed Cholelithiasis, with no signs of enlarged bile duct or cholecystitis. The patient's lab work came back unremarkable there was no signs of leukocytosis or anemia. Upon reevaluation the patient appears to be doing much better she states the pain has improved because she no longer feels nauseous. The patient's UA indicated blood but the patient is currently on her menstrual cycle. At this time I have low suspicion for Choledocholithiasis, acute appendicitis, UTI, pyelonephritis, kidney stone cholecystitis, ectopic , ovarian torsion, sepsis, pneumonia, pancreatitis. Advised the patient that if her gallbladder persist to give her issues that she will probably have to see a general surgeon to have it removed but at this point ther e is no acute surgical emergency. Advised the patient follow-up primary care provider in 1 to 2 days regarding this visit. Advised patient symptoms worsen return to ER immediately. All questions were answered upon discharge and patient is agreement treatment plan Prescription for home: Zofran Acetaminophen I have discussed with the patient proper use and common side effects to expert with the medication . I advised the patient/family to speak with the pharmacist dispensing the medication to be advised of any potential drug interactions with other medication or supplements they may be taking. Discharge: At this time, patient is stable for discharge and outpatient management. I have instructed the patient to follow-up with his\her primary care physician in 1 to 2 days. I have discussed with the patient the possibility of needing to see a specialist for further work-up and imaging studies if symptoms persist. I have instructed the patient to promptly return to the ER for any new or worsening symptoms including increased pain, fever, nausea, vomiting, weakness or LOC. Th e patient and\or family expressed understanding of and agreement with this plan. All questions were answered. Home care instructions were provided. Disclaimer: Inadvertent spelling and grammatical errors are likely due to EHR\dictation software use and do not reflect on the overall quality of patient care. Also, please note that the electronic time recorded on the note does not necessarily reflect the actual time of the patient encounter. Departure Diagnosis: Primary Impression: Cholelithiasis Cholelithiasis location: gallbladder Cholecystitis presence: without cholecystitis Biliary obstruction: without biliary obstruction Qualified Codes: K80.20 - Calculus of gallbladder without cholecystitis without obstruction Additional Impression: Abdominal pain Abdominal location: right upper quadrant Qualified Codes: R10.11 - Right upper quadrant pain Condition: Stable Patient Instructions: Gallstones Referrals: [facility] YOU HAVE RECEIVED A MEDICAL SCREENING EXAM AND THE RESULTS INDICATE THAT YOU DO NOT HAVE A CONDITION THAT REQUIRES URGENT TREATMENT IN THE EMERGENCY DEPARTMENT. FURTHER EVALUATION AND TREATMENT OF YOUR CONDITION CAN WAIT UNTIL YOU ARE SEEN IN YOUR DOCTORS OFFICE WITHIN THE NEXT 1-2 DAYS. IT IS YOUR RESPONSIBILITY TO MAKE AN APPOINTMENT FOR FOLOW-UP CARE. IF YOU HAVE A PRIMARY DOCTOR --you should call your primary doctor and schedule an appointment IF YOU DO NOT HAVE A PRIMARY DOCTOR YOU CAN CALL OUR PHYSICIAN REFERRAL HOTLINE AT IF YOU CAN NOT AFFORD TO SEE A PHYSICIAN YOU CAN CHOSE FROM THE FOLLOWING [facility] [address] [facility]. [facility] [address] [facility] [address] [facility] [address] [facility] [address] [facility]. [facility] [address] [facility]. [facility]. [address] [facility]. [facility] YOU HAVE RECEIVED A MEDICAL SCREENING EXAM AND THE RESULTS INDICATE THAT YOU DO NOT HAVE A CONDITION THAT REQUIRES URGENT TREATMENT IN THE EMERGENCY DEPARTMENT. FURTHER EVALUATION AND TREATMENT OF YOUR CONDITION CAN WAIT UNTIL YOU ARE SEEN IN YOUR DOCTORS OFFICE WITHIN THE NEXT 1-2 DAYS. IT IS YOUR RESPONSIBILITY TO MAKE AN APPOINTMENT FOR FOLOW-UP CARE. IF YOU HAVE A PRIMARY DOCTOR --you should call your primary doctor and schedule and appointment IF YOU DO NOT HAVE A PRIMARY DOCTOR YOU CAN CALL OUR PHYSICIAN REFERRAL HOTLINE AT . IF YOU CAN NOT AFFORD TO SEE A PHYSICIAN YOU CAN CHOSE FROM THE FOLLOWING [facility] INSTITUTIONS: [facility] [address] [place] [address] [facility] [address] [place] [address] [facility] [address] [place] [address] Additional Instructions: Call your primary care doctor TOMORROW for an appointment during the next 1-2 days.See the doctor sooner or return here if your condition worsens before your appointment time. REMI CHAND PA-C Nov 01, 2018 04:36
== END | disposition home or self-care (01) ==
LOC: FTE 02:30
DX: K80.20 Calculus of gallbladder without cholecystitis without obstruction (principal)
CPT/HCPCS: 76705; 80053; 81001; 81025; 83690; 85025; Z7610; 36415